=== PATIENT | male | born 1980 | race Caucasian/White ===

== ENCOUNTER → 2022-04-19 07:10 | Outpatient (BNVA) | payer MEDICAID, SELFPAY | PROVIDERS: Visit Provider Student in an Organized Health Care Education/Training Program | DX: M25.541 Pain in joints of right hand (principal); M79.18 Myalgia, other site; M79.7 Fibromyalgia | CPT/HCPCS: 20552; 99202 ==

== ENCOUNTER 2022-04-19 08:58 | Outpatient (REF) | payer MEDICAID, SELFPAY ==
[2022-04-19 10:54] LABS: MANUAL DIFF FLAG NO
[2022-04-19 11:04] LABS: Basophils Absolute Auto 0.1 X10*3/uL (0.0-0.2); Basophils Percent Auto 0.8 % (0-2); Eosinophils Absolute Auto 0.1 X10*3/uL (0.0-0.4); Eosinophils Percent Auto 2.1 % (0-4); Hematocrit 41.2 % (42.0-52.0); Hemoglobin 13.9 g/dl (14.0-18.0); Imm Gran Abs Auto 0.02 X10*3/uL (0.00-0.03); Imm Gran Pct Auto 0.3 % (0.0-0.4); Lymphocytes Absolute Auto 2.1 X10*3/uL (1.2-4.9); Lymphocytes Percent Auto 31.6 % (20-40); Mean Corpuscular HGB Conc 33.7 g/dl (31.0-36.0); Mean Corpuscular Hemoglobin 30.7 pg (27.0-33.0); Mean Corpuscular Volume 90.9 fL (80.0-98.0); Mean Platelet Volume 9.7 fL (9.4-12.4); Monocytes Absolute Auto 0.5 X10*3/uL (0.1-1.2); Monocytes Percent Auto 7.2 % (2-11); Neutrophils Absolute Auto 3.8 x10*3/uL (2.0-8.3); Platelet Count 324 X10*3/uL (160-400); Red Blood Count 4.53 X10*6/uL (4.60-5.80); Red Cell Distribution Width 11.9 % (11.0-16.0); White Blood Count 6.6 X10*3/uL (4.8-10.8)
[2022-04-19 11:12] LABS: Appearance Urine Clear; Color Urine Dark Yellow; Glucose Urine UA Negative (Negative); Leukocyte Esterase Urine Trace (Negative); Nitrite Urine Negative (Negative); PH 5.5 (5.0-9.0); Specific Gravity - Urine 1.025 (1.005-1.025); UMIC TRIGGER UA YES; Urine Blood Negative (Negative); Urine Ketones Trace mg/dL (Negative); Urine Protein Negative (Neg-Trace)
[2022-04-19 11:16] LABS: Bacteria Urine None Seen (None Seen); Hyaline Casts Urine 0-2 /LPF (0-2); RBC Urine 0-2 /HPF (0-2); Squamous Epithelial Cell Urine 0-2 /HPF (0-2); WBC Urine 0-5 /HPF (0-5)
[2022-04-19 11:25] LABS: Alanine Aminotransferase 30 U/L (0-40); Albumin Level 4.2 g/dL (3.5-5.0); Alkaline Phosphatase 110 U/L (39-117); Anion Gap 12 (12-20); Aspartate Amino Transferase 20 U/L (5-37); Bilirubin Total 0.6 mg/dL (0.0-1.0); Blood Urea Nitrogen 12 mg/dL (9-16); C Reactive Protein 0.63 mg/dL (< or = 0.50); Carbon Dioxide 26 mmol/L (22-29); Chloride 108 mmol/L (96-108); Estimated Glomerular Filt Rate > 60; Glucose Random 106 mg/dL (60-115); Potassium 3.9 mmol/L (3.3-5.1); Rheumatoid Factor < 13.0 IU/mL (<15.0); Sodium 142 mmol/L (135-145); Total Protein 7.4 g/dL (6.5-8.0); Uric Acid 4.1 mg/dL (3.4-7.0)
[2022-04-19 11:28] LABS: Estimated Average Glucose 100 mg/dL; Hemoglobin A1c % 5.1 %
[2022-04-19 11:39] LABS: TSH reflex Free T4 1.69 uIU/mL (0.32-4.0)
[2022-04-19 11:42] LABS: Creatinine Urine 199.37 mg/dL; Protein/Creatinine Ratio, Ur 0.07 (<0.2); Total Protein Urine Random 14 mg/dL (<12)
[2022-04-19 11:57] LABS: Erythrocyte Sedimentation Rate 12 MM/HR (0-15)
[2022-04-20 11:48] LABS: HBc Num1 0.11 S/CO (0.00-0.79); HBsAGNum1 0.28 S/CO (0.00-0.99); Hepatitis A Antibody IgM 0.12 Index (0-0.79); Hepatitis B Core Antibody Nonreactive (Nonreactive); Hepatitis B Surface Antigen Negative (Negative); ~Hepatitis A Antibody IgM Nonreactive (Nonreactive); ~Hepatitis B Surface Antibody NONREACTIVE (Nonreactive); ~Hepatitis C Antibody Nonreactive (Nonreactive)
[2022-04-20 18:04] LABS: Complement C3 75 mg/dL (82-185)
[2022-04-20 20:48] LABS: Anti DNA DS Antibody 1 IU/mL; Antibody to SS-A Antigen <1.0 NEG AI (<1.0 NEG); Antibody to SS-B Antigen <1.0 NEG AI (<1.0 NEG); SM/Ribonucleoprotein Ab <1.0 NEG AI (<1.0 NEG); Smith Protein <1.0 NEG AI (<1.0 NEG)
[2022-04-21 21:04] LABS: Prot Elec - Albumin 4.2 g/dL (3.8-4.8); Prot Elec - Alpha1 0.3 g/dL (0.2-0.3); Prot Elec - Alpha2 0.7 g/dL (0.5-0.9); Prot Elec - Beta 1 0.5 g/dL (0.4-0.6); Prot Elec - Beta 2 0.4 g/dL (0.2-0.5); Prot Elec - Gamma 1.3 g/dL (0.8-1.7); Prot Elec - Total Protein 7.5 g/dL (6.1-8.1)
[2022-04-23 23:05] LABS: Cyclic Citrullinated Peptide <16 UNITS
[2022-04-24 09:09] LABS: Anti Nuclear Antibody Screen NEGATIVE (NEGATIVE)
[2022-04-25 15:33] LABS: DNAds, Crithidia Antibody Negative (Negative)
[2022-04-25 18:07] LABS: IgA 309 mg/dL (47-310); IgG 1550 mg/dL (600-1640); IgM 69 mg/dL (50-300)
== END 2022-04-19 08:59 | disposition home or self-care (01) ==
LOC: HO.10HDL 08:58
PROVIDERS: Visit Provider Student in an Organized Health Care Education/Training Program
DX: M25.541 Pain in joints of right hand (principal); G72.9 Myopathy, unspecified; R53.83 Other fatigue; M25.50 Pain in unspecified joint; M79.7 Fibromyalgia; Z79.899 Other long term (current) drug therapy; Z11.59 Encounter for screening for other viral diseases
CPT/HCPCS: 20552; 36415; 80053; 81001; 82550; 82784; 83036; 84156; 84165; 84443; 84550; 85025; 85652; 86038; 86039; 86140; 86160; 86200; 86225; 86235; 86255; 86334; 86431; 86704; 86706; 86709; 86803; 87340

== ENCOUNTER 2022-05-29 16:47 | Outpatient (REF) | payer MEDICAID, SELFPAY ==
--- NOTE | ~2022-05-29 | XR_ITS ---
EXAMINATION: XR ELBOW, RIGHT CLINICAL INFORMATION: Rheumatoid arthritis. COMPARISON: None TECHNIQUE: AP, lateral, and oblique views of the right elbow. XR/XR elbow RT min 3V FINDINGS/IMPRESSION: There is an olecranon spur with a well-corticated ossific density at its tip which may represent an old avulsion fracture. The study is otherwise unremarkable. The bones and soft tissues otherwise appear unremarkable. No acute fracture or joint effusion is appreciated. Alignment is anatomic. Joint spaces are maintained. Bony mineralization appears preserved. No juxta articular erosion is seen.
--- NOTE | ~2022-05-29 | XR_ITS ---
EXAMINATION: XR FOOT, LEFT CLINICAL INFORMATION: Rheumatoid arthritis. COMPARISON: None TECHNIQUE: AP, lateral, and oblique views of the left foot. FINDINGS: Small plantar and Achilles calcaneal spurs. The bones and soft tissues otherwise appear unremarkable. No fracture appreciated. Alignment is anatomic. Joint spaces are maintained. No lytic or sclerotic bony lesion identified. No juxta articular erosion appreciated. XR/XR foot LT min 3V IMPRESSION: Unremarkable plain film examination of the left foot.
--- NOTE | ~2022-05-29 | XR_ITS ---
EXAMINATION: XR KNEE, LEFT XR KNEE, RIGHT CLINICAL INFORMATION: Rheumatoid arthritis. COMPARISON: None TECHNIQUE: Four views of the left knee. Four views of the right knee. FINDINGS: Bones and soft tissues appear unremarkable. No fracture or joint effusion. Alignment is anatomic. Joint spaces are well maintained. Unremarkable bone mineralization. No juxta articular erosion appreciated. No abnormal soft tissue calcification. XR/XR knee standing BI IMPRESSION: Normal plain film examinations of the knees.
--- NOTE | ~2022-05-29 | XR_ITS ---
EXAMINATION: XR HAND, RIGHT XR HAND, LEFT CLINICAL INFORMATION: Rheumatoid arthritis. COMPARISON: None TECHNIQUE: AP, lateral, and oblique views of the right hand. AP, lateral, and oblique views of the left hand. FINDINGS: The bones and soft tissues appear unremarkable. No fracture appreciated. Alignment is anatomic. Joint spaces are maintained. Bony mineralization appears preserved. No lytic or sclerotic bony lesion identified. No juxta articular erosion appreciated. XR/XR hand wrist RT IMPRESSION: Unremarkable plain film examinations of the right and left hands.
--- NOTE | ~2022-05-29 | XR_ITS ---
EXAMINATION: XR SHOULDER, RIGHT XR SHOULDER, LEFT CLINICAL INFORMATION: M06.9 - Rheumatoid arthritis, unspecified COMPARISON: Chest radiographs 11/06/2019 TECHNIQUE: Each shoulder is imaged in 4 views. There are total of 8 views. FINDINGS: Right: Normal bony mineralization. Glenohumeral joint normal. No joint narrowing or erosive change. The acromioclavicular alignment is normal. No visible rotator cuff calcifications. Left: Normal bony mineralization. Glenohumeral joint normal. No joint narrowing or erosive change. The acromioclavicular alignment is normal. Small benign exostosis distal superior clavicle. A benign corticated ossicle is present at the superior aspect acromioclavicular joint measuring approximately 0.8 x 0.8 cm. No visible rotator cuff calcifications. XR/XR shoulder RT min 2V IMPRESSION: 1. No joint narrowing or erosive changes. 2. No visible rotator cuff calcifications. 3. Small benign ossicle superior left AC joint.
--- NOTE | ~2022-05-29 | XR_ITS ---
EXAMINATION: XR ELBOW, LEFT CLINICAL INFORMATION: Rheumatoid arthritis. COMPARISON: None TECHNIQUE: AP, lateral, and oblique views of the left elbow. XR/XR elbow LT min 3V FINDINGS/IMPRESSION: There is an olecranon spur with a well-corticated ossific density at its tip which may represent an old avulsion fracture. The study is otherwise unremarkable. The bones and soft tissues otherwise appear unremarkable. No acute fracture or joint effusion is appreciated. Alignment is anatomic. Joint spaces are maintained. Bony mineralization appears preserved. No juxta articular erosion is seen.
--- NOTE | ~2022-05-29 | XR_ITS ---
EXAMINATION: XR FOOT, RIGHT CLINICAL INFORMATION: Rheumatoid arthritis. COMPARISON: None TECHNIQUE: AP, lateral, and oblique views of the right foot. FINDINGS: Small plantar and Achilles calcaneal spurs. The bones and soft tissues otherwise appear unremarkable. No fracture appreciated. Alignment is anatomic. Joint spaces are maintained. No lytic or sclerotic bony lesion identified. No juxta articular erosion appreciated. XR/XR foot RT min 3V IMPRESSION: Unremarkable plain film examination of the right foot.
--- NOTE | ~2022-05-29 | XR_ITS ---
EXAMINATION: XR KNEE, LEFT XR KNEE, RIGHT CLINICAL INFORMATION: Rheumatoid arthritis. COMPARISON: None TECHNIQUE: Four views of the left knee. Four views of the right knee. FINDINGS: Bones and soft tissues appear unremarkable. No fracture or joint effusion. Alignment is anatomic. Joint spaces are well maintained. Unremarkable bone mineralization. No juxta articular erosion appreciated. No abnormal soft tissue calcification. XR/XR knee LT 3V IMPRESSION: Normal plain film examinations of the knees.
--- NOTE | ~2022-05-29 | XR_ITS ---
EXAMINATION: XR KNEE, LEFT XR KNEE, RIGHT CLINICAL INFORMATION: Rheumatoid arthritis. COMPARISON: None TECHNIQUE: Four views of the left knee. Four views of the right knee. FINDINGS: Bones and soft tissues appear unremarkable. No fracture or joint effusion. Alignment is anatomic. Joint spaces are well maintained. Unremarkable bone mineralization. No juxta articular erosion appreciated. No abnormal soft tissue calcification. XR/XR knee RT 3V IMPRESSION: Normal plain film examinations of the knees.
--- NOTE | ~2022-05-29 | XR_ITS ---
EXAMINATION: XR SHOULDER, RIGHT XR SHOULDER, LEFT CLINICAL INFORMATION: M06.9 - Rheumatoid arthritis, unspecified COMPARISON: Chest radiographs 11/06/2019 TECHNIQUE: Each shoulder is imaged in 4 views. There are total of 8 views. FINDINGS: Right: Normal bony mineralization. Glenohumeral joint normal. No joint narrowing or erosive change. The acromioclavicular alignment is normal. No visible rotator cuff calcifications. Left: Normal bony mineralization. Glenohumeral joint normal. No joint narrowing or erosive change. The acromioclavicular alignment is normal. Small benign exostosis distal superior clavicle. A benign corticated ossicle is present at the superior aspect acromioclavicular joint measuring approximately 0.8 x 0.8 cm. No visible rotator cuff calcifications. XR/XR shoulder LT min 2V IMPRESSION: 1. No joint narrowing or erosive changes. 2. No visible rotator cuff calcifications. 3. Small benign ossicle superior left AC joint.
--- NOTE | ~2022-05-29 | XR_ITS ---
EXAMINATION: XR HAND, RIGHT XR HAND, LEFT CLINICAL INFORMATION: Rheumatoid arthritis. COMPARISON: None TECHNIQUE: AP, lateral, and oblique views of the right hand. AP, lateral, and oblique views of the left hand. FINDINGS: The bones and soft tissues appear unremarkable. No fracture appreciated. Alignment is anatomic. Joint spaces are maintained. Bony mineralization appears preserved. No lytic or sclerotic bony lesion identified. No juxta articular erosion appreciated. XR/XR hand wrist LT IMPRESSION: Unremarkable plain film examinations of the right and left hands.
== END 2022-05-29 16:48 | disposition home or self-care (01) ==
LOC: HO.XRAY 16:47
PROVIDERS: Visit Provider Student in an Organized Health Care Education/Training Program
DX: M06.9 Rheumatoid arthritis, unspecified (principal)
CPT/HCPCS: 73030; 73080; 73110; 73130; 73562; 73564; 73565; 73630

== ENCOUNTER → 2022-06-02 07:29 | Outpatient (BNVA) | payer MEDICAID, SELFPAY | PROVIDERS: PCP Nurse Practitioner; Visit Provider Student in an Organized Health Care Education/Training Program | DX: M25.541 Pain in joints of right hand (principal); M79.7 Fibromyalgia; M54.50 Low back pain, unspecified; M54.6 Pain in thoracic spine; G89.29 Other chronic pain | CPT/HCPCS: 99212 ==

== ENCOUNTER 2022-12-19 14:19 | Outpatient (AMB) | payer MEDICAID, SELFPAY ==
[2022-12-19 14:25] VITALS: BP 138/80; PULSE 111; TEMP 36.4; O2SAT 95; BMI 38.0
--- NOTE | 2022-12-19 14:25 | MHC.OFFVIS ---
Intake Vital Signs 12/19/22 14:25 Height 5 ft 8 in Weight 249 lb 12.54 oz BMI 38.0 BP 138/80 Blood Pressure Location Rt brachial Position Sitting Pulse 111 H Pulse Source Pulse Oximeter Temp 97.6 F Temp Source Skin Pulse Oximetry (%) 95 Intake Visit Reasons: 4 mnts f/u for FMS Intake Note: Pt seen today for follow up. 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: No Accompanied by: Self / Same As Patient Allergies diphenhydramine [From BENADRYL] Allergy (Severe, Unverified 12/19/22 14:27) LIP SWELLING Medication List - Last Reconciled 12/19/22 by Mellisa Henderson MD albuterol sulfate 90 mcg/actuation (ProAir HFA) 2 puffs inhalation Q6H PRN aripiprazole 5 mg PO DAILY budesonide-formoterol 160-4.5 mcg/actuation (Symbicort) 2 puffs inhalation BID buprenorphine-naloxone 4-1 mg (Suboxone) 5 mg sublingual DAILY duloxetine 60 mg PO DAILY fluticasone propionate 50 mcg/actuation (Allergy Relief (fluticasone)) 1 spray intranasal DAILY gabapentin 300 mg PO BID ibuprofen 800 mg PO Q8H PRN lisinopril 40 mg PO DAILY loratadine 10 mg PO DAILY metoprolol succinate ER 50 mg PO DAILY omeprazole 20 mg PO DAILY polymyxin B sulf-trimethoprim 10,000 unit- 1 mg/mL ophthalmic (eye) HPI HPI Comments History of Present Illness Details 42-year-old male with fibromyalgia returns for follow-up. On gabapentin 300 mg Twice daily and duloxetine 60 mg daily. Recently prescribed duloxetine by his PCP. Feels that it is providing some help. Continues to have diffuse pain especially in his knees, stomach, trapezius muscles. Initial history: This is a 41-year-old male with a past medical history of anxiety, bipolar disorder, asthma, GERD, hypertension who presents for evaluation of diffuse pain. The condition started many years ago but it has become worse over the last 2 years. Patient stated he has had back pain for years he has had multiple steroid injections in his back by pain management years ago without any significant relief. Over the last 2 years he has been having this fused pain especially in the right shoulder region right side of his neck, upper back, elbows, hands, knees, feet. The pain is generally worse at night. Patient has difficulty falling and staying asleep. Over the last 2 years patient has not been able to work due to severe diffuse pain and fatigue. He denies any skin rashes. Denies any blood or froth in urine. No history suggestive of Raynaud's. No history of DVT/PE. 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 Review of Systems ENT Reports neck pain GI Reports abdominal pain Musc Reports back pain, Reports myalgias, Reports arthralgias, Reports muscle weakness, Reports neck pain, Reports numbness, Reports stiffness and Reports tingling Neuro Reports numbness and Reports tingling Psych Reports abnormal sleep pattern, Reports anxiety and Reports depression Physical Exam Vital Signs: Last Vital Signs Temp 97.6 F 12/19/22 14:25 Pulse 111 H 12/19/22 14:25 BP 138/80 12/19/22 14:25 Pulse Ox 95 12/19/22 14:25 BMI result Body Mass Index 38.0 Const General: cooperative, healthy appearing, comfortable and no acute distress Nutritional Appearance: obese Orientation/consciousness: patient oriented x3 Limitations: no limitations Resp Effort & Inspection: normal respiratory effort and able to speak in complete sentences Neuro General: patient oriented x3 Extrem Other: Right trapezius muscle tenderness No active synovitis Assessment & Plan Assessment & Plan (1) Fibromyalgia, primary: Code(s): M79.7 - Fibromyalgia Plan: This is a 42-year-old male with fibromyalgia who returns for follow-up. On gabapentin 300 mg Twice daily and duloxetine 60 mg daily. Continues to have diffuse pain. Discussed switching gabapentin to Lyrica. Patient agreed to proceed. Stop gabapentin. Start Lyrica 75 mg Twice daily. Follow-up in 3 months Plan I spent 15 minutes reviewing patient's chart, evaluating patient, ordering diagnostic workup, counseling patient and documenting in the chart Medications: New pregabalin (Lyrica) 75 mg PO BID 180 caps 0RF Coding Level of Care Code Est Pt Level 3 (38215) Diagnoses Fibromyalgia, primary M79.7
== END 2022-12-19 14:48 | disposition home or self-care (01) ==
PROVIDERS: PCP Nurse Practitioner; Visit Provider Student in an Organized Health Care Education/Training Program
DX: M79.7 Fibromyalgia (principal)
CPT/HCPCS: 99213

== ENCOUNTER → 2022-12-19 14:19 | Outpatient (BNVA) | payer MEDICAID, SELFPAY | PROVIDERS: PCP Nurse Practitioner; Visit Provider Student in an Organized Health Care Education/Training Program | DX: M79.7 Fibromyalgia (principal) | CPT/HCPCS: 99212 ==

== ENCOUNTER → 2023-01-30 15:45 | Outpatient (BNV) | payer OTHER, SELFPAY | PROVIDERS: PCP Nurse Practitioner; Visit Provider Internal Medicine | DX: R07.9 Chest pain, unspecified (principal); R00.0 Tachycardia, unspecified | CPT/HCPCS: 93306 ==

== ENCOUNTER → 2023-01-30 15:45 | Outpatient (REF) | payer OTHER, SELFPAY ==
--- NOTE | 2023-01-30 15:45 | CA_ITS ---
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 The calculated ejection fraction is 60% by biplane method. - No obvious valvular pathology seen on this study. Findings Left Ventricle Normal left ventricular cavity size. There is mildly increased left ventricular wall thickness. The left ventricular systolic function is normal. The calculated ejection fraction is 60% by biplane method. There is no evidence of regional wall motion abnormalities. Diastolic function is normal for age. LV peak GLS -18.8%. Right Ventricle Normal right ventricular cavity size and systolic function. Atria Both atria are normal in size. Aortic Valve There is a normal trileaflet aortic valve. There is no aortic valve stenosis. There is no aortic valve regurgitation. Mitral Valve The mitral valve appears normal. There is no mitral valve regurgitation. There is no mitral valve stenosis. Pulmonic Valve The pulmonic valve is likely normal. Tricuspid Valve Normal tricuspid valve structure. There is trace tricuspid valve regurgitation. There is no evidence of pulmonary hypertension. Great Vessels The asc aorta is normal in size. Venous The inferior vena cava is normal in size and collapses greater than 50% with inspiration. Pericardium/Pleural Prominent epicardial adipose tissue noted. There is no evidence of pericardial effusion. Prior Study Comparison No prior study available for comparison. Recommendations, Care & Conclusions No obvious valvular pathology seen on this study. Measurements 2D Linear Measurements IVSd: 1.25 0.6-0.9/0.6-1.0 cm LVIDd: 4.05 3.9-5.3/4.2-5.9 cm LVIDd Index: 1.77 2.4-3.2/2.2-3.1 cm/m2 LVIDs: 2.33 2.0-3.6 cm LVPWd: 1.24 0.7-1.1 cm Ao Root: 2.70 2.1-3.5 cm LA Diam: 3.90 2.7-3.8/3.0-4.0 cm LAIDs Index: 1.70 1.5-2.3 cm/m2 LV Mass: 221.83 67-162/88-224 g LV Mass Index: 96.87 43-95/49-115 g/m2 LVOT Diam: 2.10 3.0+(-)1.3 cm 2D Systolic Function EF 4C: 61.70 >55% EF 2C: 59.30 >55% EF BiP: 59.70 >55% Mitral Valve MV Pk E: 0.79 MV PK A: 0.96 MV Decel Time: 173.00 E/A: 0.80 E'Lateral: 8.38 E'Medial: 6.42 E/E' Med: 12.40 E/E' Lat: 9.50 PHT: 51.00 MVA PHT: 4.31 Decel [place]: 4.59 Aortic Valve AoV Pk Wong: 1.89 AoV Mn Wong: 1.25 AoV VTI: 0.37 AoV Pk Grad: 14.00 Aov Mn Grad: 7.00 ROXANNE Cont.VTI: 2.29 LVOT LVOT Pk Wong: 1.30 LVOT Mn Wong: 0.81 LVOT VTI: 0.25 LVOT Pk Grad: 7.00 LVOT Mn Grad: 3.00 LVOT Diam: 2.10 LVOT Area: 3.46 Diastolic Function MV Pk E: 0.79 MV Pk A: 0.96 E/A: 0.80 E'Medial: 6.42 E/E' Med: 12.40 E' Laterial: 8.38 E/E' Lat: 9.50 Right Ventricle TAPSE (mm): 30.00 TVS' Wong: 13.00 Tricuspid Valve TR Pk Wong: 2.18 TR Pk Grad: 19.00 RA Press: 3.00 RVSP: 22.00 Great Vessels Aorta Ao Root-2D: 2.70 2.0-3.7 cm Ao Asc: 2.60 2.1-3.4 cm Pulmonary Valve PV Pk Wong: 1.64 Peak PV Grad: 11.00 Updated in Other Vendor System with Status of Final Patrick Cook MD electronically signed on 01/31/2023 10:41:25 AM with status of Final
== END ==
LOC: HO.CARD 15:45
PROVIDERS: PCP Nurse Practitioner; Visit Provider Registered Nurse
DX: I10 Essential (primary) hypertension (principal)
CPT/HCPCS: 93306; 93356